=== PATIENT | male | born 1970 | race Caucasian/White ===

== ENCOUNTER 2023-01-31 16:11 | Inpatient (IN) ==
[2023-01-31] MEDS ORDERED: SODIUM CHLORIDE 0.9% 1000ML 1,000 ML IV STA (16:15)
[2023-01-31] MEDS ORDERED: ONDANSETRON INJ 2 MG/ML 2 ML VIAL IV STA (16:15)
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
[2023-01-31] MEDS: MoRPHine SULFATE 4 MG/ML 1 ML CARP\\VIAL IV PRN ×3 (16:29→19:51)
--- NOTE | 2023-01-31 17:21 | XRay Report ---
XR tibia fibula LT 2V CLINICAL HISTORY: crush injury. Left lower leg pain. COMPARISON STUDY: None. FINDINGS: There is an old, healed mid left fibular fracture. Soft tissue swelling within the distal l eft lower leg. There is a displaced transverse fracture within the distal shaft of the left tibia. Th is demonstrates up to 1.9 cm of medial displacement and 1 cm posterior displacement. The fracture sli ghtly comminuted. The ankle mortise appears intact. Slight cortical irregularity at the neck of the l eft fibula on the lateral view appears to represent an old, healed fracture. IMPRESSION: Displaced fracture within the distal shaft of the left tibia as described above. ACT 112: Negative or not required by law. Electronically signed by: Jerrell Leos M.D. 01/31/2023 5:19 PM
[2023-01-31 18:22] LABS: Basophils # (auto) 0.07 K/uL (0-0.2); Basophils % (auto) 0.6 %; Hematocrit (blood only) 39.9 % (42.0-52.0); Immature Granulocytes # (auto) 0.03 K/uL (0.01-0.20); Immature Granulocytes % (auto) 0.3 %; Lymphocytes # (auto) 1.03 K/uL (1.2-3.4); Lymphocytes % (auto) 8.7 %; Mean Corpuscular Hemoglobin 31.3 pg (25.0-34.0); Mean Corpuscular Hgb Conc 35.1 g/dL (32.0-36.0); Mean Corpuscular Volume 89.1 fL (80.0-100.0); Mean Platelet Volume 9.4 fL (9.4-12.4); Monocytes # (auto) 0.54 K/uL (0.11-0.59); Monocytes % (auto) 4.6 %; Neutrophils # (auto) 10.19 K/uL (1.40-6.50); Neutrophils % (auto) 85.8 %; Platelet Count 175 K/uL (130-400); RDW Coefficient of Variation 12.5 % (11.5-14.5); Red Blood Count 4.48 M/uL (4.70-6.10); White Blood Count 11.86 K/ul (4.8-10.8)
[2023-01-31 18:38] LABS: Albumin Level 4.3 gm/dl (3.4-5.0); Bilirubin,Total 0.4 mg/dl (0.2-1.0); Calcium 9.1 mg/dl (8.6-10.3); Creatinine Clr Calc Pharmacy 82.2 ml/min; Est GFR (African American) 87.4 ml/min; Est GFR (Non-African American) 75.4 ml/min; Globulin 2.2 gm/dl (2.5-4.0); Total Protein 6.5 gm/dl (6.0-8.3)
[2023-01-31 18:45] LABS: Troponin I High Sensitivity 4.2 pg/ml (0-20)
--- NOTE | 2023-01-31 18:55 | XRay Report ---
XR chest 1V portable HISTORY: Preop. Left tibial fracture. COMPARISON: None. FINDINGS: The lungs are clear. Cardiac silhouette is normal in size. No pleural effusions. No pneumot horax. IMPRESSION: No acute process. ACT 112: Negative or not required by law. Electronically signed by: Jerrell Leos M.D. 01/31/2023 6:53 PM
[2023-01-31 18:58] LABS: Prothrombin Time 10.8 Seconds (9.0-12.0)
[2023-01-31] MEDS ORDERED: oxyCODONE/ACETAMINOPHEN 5mg/325mg TAB PO STA (20:09)
[2023-01-31] MEDS: HYDROmorphone INJ 1 MG/ML SYRINGE IV PRN (22:51)
[2023-01-31] MEDS ORDERED: ONDANSETRON INJ 2 MG/ML 2 ML VIAL IV PRN (23:34)
[2023-01-31] MEDS ORDERED: oxyCODONE/ACETAMINOPHEN 5mg/325mg TAB PO PRN (23:34)
[2023-02-01] MEDS: HYDROmorphone INJ 1 MG/ML SYRINGE IV PRN ×3 (02:59→11:16)
[2023-02-01] MEDS ORDERED: ceFAZolin 2000MG 2,000 MG/15 ML SYR IV SCH (06:00)
[2023-02-01] MEDS: ACETAMINOPHEN 1,000 MG/100 ML VIAL IV PRN ×2 (06:22→20:13)
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
--- NOTE | 2023-02-01 07:36 | XRay Report ---
XR chest 2V PA/lateral CLINICAL HISTORY: Preoperative evaluation. COMPARISON STUDY: Chest radiograph January 31, 2023. FINDINGS: Lung volumes are normal. Lungs are clear. There is no pneumothorax or pleural effusion. Car diac size is normal. Mediastinal contours are normal. There is no evidence for pulmonary edema. Gaseo us distention of the stomach is partially imaged. IMPRESSION: No acute cardiopulmonary findings. ACT 112: Negative or not required by law. Electronically signed by: Marco iVgil M.D. 02/01/2023 7:35 AM
--- NOTE | 2023-02-01 07:44 | Anesthesiology Consultation ---
Date of Service February 01, 2023 Assessment & Plan Chart Review Chart Review: Acceptable Risk for Surgery and Patient NOT seen in Pre Admission Testing Consults Requested none ASA ASA2 Proposed Anesthesia Anesthesia Type: General History Surgery Operation Date: 02/01/23 09:00 Proposed Procedures p Left Intramedullary Nail Tibia - Richie Andrea Rodrigue, Height/Weight Height: 5 ft 8 in Weight: 86.4 kg Allergies Allergy/AdvReac Type Severity Reaction Status Date / Time No Known Allergies Allergy Unverified 01/31/23 16:37 Medications Home Medications Medication Instructions Recorded Confirmed Last Taken rosuvastatin 40 mg tablet 40 mg PO QAM 01/31/23 01/31/23 01/31/23 Active Medications Generic Name Dose Route Start Last Admin Trade Name Freq PRN Reason Stop Dose Admin Hydromorphone HCl 1 mg 01/31/23 20:08 02/01/23 07:18 Hydromorphone Inj 1 Mg/Ml Syringe IV 02/14/23 20:07 1 mg Q4 PRN Administration Pain Acetaminophen 1,000 mg in 100 mls @ 400 mls/hr 02/01/23 02:14 02/01/23 07:04 Ofirmev IV 02/04/23 02:13 Infused Q8H PRN Infusion Pain Past Medical History Medical History High cholesterol Hyperlipidemia Exercise / Class Metabolic Activity II 4-5 Yardwork/Stairs/Walk up hill Past Anesthesia History No Hx of Anesthesia Complications and No Family Hx of Anesthesia Complications History of PONV No Hx of PONV and No Hx of Motion Sickness Social History Smoking Status: Never smoker Hx Alcohol Use: Yes Alcohol type: beer and hard liquor alcohol intake frequency: a few times a week Hx Substance Use: No Physical Exam Vital Signs Last Vital Signs Temp 37.3 C 01/31/23 23:15 Pulse 81 01/31/23 23:15 Resp 16 01/31/23 23:15 BP 166/95 H 01/31/23 23:15 Pulse Ox 95 01/31/23 23:15 O2 Del Method Room Air 01/31/23 23:15 Testing Laboratory Results 01/31/23 18:02 01/31/23 18:02 PT 10.8 Seconds (9.0-12.0) 01/31/23 18:02 INR 1.0 (0.9-1.1) 01/31/23 18:02 Blood Type O Positive 01/31/23 18:33 Antibody Screen NEGATIVE 01/31/23 18:33 Electrocardiogram Date: 02/01/23 Findings: + NSR @ (@ 74;Abnormal QRS-T angle;consider primary T wave abnor mality) Chest X-Ray Date: 01/31/23 Findings: + NAD
[2023-02-01] MEDS: SODIUM CHLORIDE 0.9% 1000ML 1,000 ML IV SCH ×3 (07:50→20:35)
--- NOTE | 2023-02-01 08:33 | Hospitalist Progress Note ---
Date of Service February 01, 2023 Assessment & Plan (1) Closed left tibial fracture: Plan: Occurred during mowing accident while mowing his parent's law while up visiting from [place] for Graduation of his son Imaging w/ Displaced fracture within the distal shaft of the left tibia as described above Orthopedic primary, only takes crestor. No hx CAD/DE/Stroke, no personal hx DVT/PE Labs/CXR/EKG reviewed and medically stable. BP elevation but asymptomatic, suspected 2nd to pain from fracture. WBC elevation likely from stress/fracture, afebrile and no infectious symptoms reported Pain control/bowel regimen (passing gas, no BM, would be aggressive post- operatively) per primary service PT/OT following surgery DVT prophylaxis post-op per primary service, suspect ASA 81mg BID given no hx PE/DVT Dispo per primary service (2) Hyperlipidemia: Plan: Continue crestor Plan Hospitalist service will sign off at this time. Discussed w/ Dr Husain and can reach out for any issues post-operatively Thank you for allowing hospitalist service to participate in the care of Mr Schuler Admission and Anticipated Discharge Date Admission Date: January 31, 2023 Supervising Physician Co-Signing Physician Notes The patient was not seen by me. The chart was reviewed. Case discussed with ELOISE Lino. His only medical problem is hyperlipidemia for which he takes Crestor. He is medically stable for surgery. Agree with assessment and plan. Hospitalist service will sign off at this point Subjective eval this morning. in from [place] for his son's graduation and was mowing his parents grass when he sustained the injury. awaiting surgery. had decent amount of pain this morning but improvement w/ dilaudid reported. passing some gas but no bowel movement. no issues at baseline. discussed heavy bowel regimen to prevent constipation/etc while on pain meds when back from surgery. he would be interested in outpt therapy closer to home if able. discussed will sign off at this time but available for primary team to reach out w/ any questions/concerns. no history of DVT/PE. Physical Exam Physical Exam: General: WD/WN male resting in bed, NAD, just medicated for pain HEENT: head normocephalic, atraumatic, mmm, trachea midline Resp: CTA, no w/c/r, on room air 99% CV: RRR, no significant m/r/g, no pitting edema (LLE not able to be assessed due to splint/dressing) but sensation to toes intact GI: +BS, slight distension, NT to palpation MSK/Neuro: no focal deficit LLE in splint, compartments soft, sensation intact to light touch, pulses present Psych: AOx3, cooperative with exam Results & Data Results & Data Vital Signs (Past 12 Hours) Vital Signs Temp Pulse Pulse Resp BP BP Pulse Ox 02/01/23 08:12 37 C 74 20 171/97 H 99 01/31/23 23:15 37.3 C 81 16 166/95 H 95 01/31/23 22:00 76 23 169/102 H 99 01/31/23 21:30 77 18 174/89 H 98 01/31/23 21:01 76 14 185/102 H 99 01/31/23 20:51 78 O2 Del Method 02/01/23 08:12 Room Air 01/31/23 23:15 Room Air 01/31/23 22:00 Room Air 01/31/23 21:30 Room Air 01/31/23 21:01 Room Air 01/31/23 20:51 Laboratory Results 01/31/23 01/31/23 01/31/23 Range/Units 18:33 18:03 18:02 WBC (4.8-10.8) K/ul RBC (4.70-6.10) M/uL Hgb (14.0-18.0) g/dl Hct (42.0-52.0) % MCV (80.0-100.0) fL MCH (25.0-34.0) pg MCHC (32.0-36.0) g/dL RDW Std Deviation (36.4-46.3) fL RDW Coeff of Valeria (11.5-14.5) % Plt Count (130-400) K/uL MPV (9.4-12.4) fL Immature Gran % (Auto) % Neut % (Auto) % Lymph % (Auto) % [place] % (Auto) % Eos % (Auto) % Baso % (Auto) % Neut # (Auto) (1.40-6.50) K/uL Lymph # (Auto) (1.2-3.4) K/uL [place] # (Auto) (0.11-0.59) K/uL Eos # (Auto) (0-0.50) K/uL Baso # (Auto) (0-0.2) K/uL Immature Gran # (Auto) (0.01-0.20) K/uL PT (9.0-12.0) Seconds INR (0.9-1.1) Sodium 136 (136-145) mmol/L Potassium 4.0 (3.5-5.1) mmol/L Chloride 105 (98-107) mmol/L Carbon Dioxide 25 (21-32) mmol/L Anion Gap 6 (3-11) BUN 20 (6-23) mg/dl Creatinine 1.11 (0.6-1.4) mg/dl Est Cr Clr Drug Dosing 82.2 ml/min Est GFR ( Amer) 87.4 ml/min Est GFR (Non-Af Amer) 75.4 ml/min BUN/Creatinine Ratio 18.0 (10-20) Glucose 116 H (70-99(Fasting)) mg/dl Calcium 9.1 (8.6-10.3) mg/dl Total Bilirubin 0.4 (0.2-1.0) mg/dl AST 23 (13-39) U/L ALT 31 (7-52) U/L Alkaline Phosphatase 61 (34-104) U/L Troponin I High Sens 4.2 (0-20) pg/ml Total Protein 6.5 (6.0-8.3) gm/dl Albumin 4.3 (3.4-5.0) gm/dl Globulin 2.2 L (2.5-4.0) gm/dl Albumin/Globulin Ratio 2.0 (0.9-2) Lipase 24 (11-82) U/L SARS-CoV-2, RNA, NAAT NEGATIVE (NEGATIVE) Blood Type O Positive Antibody Screen NEGATIVE 01/31/23 01/31/23 Range/Units 18:02 18:02 WBC 11.86 H (4.8-10.8) K/ul RBC 4.48 L (4.70-6.10) M/uL Hgb 14.0 (14.0-18.0) g/dl Hct 39.9 L (42.0-52.0) % MCV 89.1 (80.0-100.0) fL MCH 31.3 (25.0-34.0) pg MCHC 35.1 (32.0-36.0) g/dL RDW Std Deviation 41.0 (36.4-46.3) fL RDW Coeff of Valeria 12.5 (11.5-14.5) % Plt Count 175 (130-400) K/uL MPV 9.4 (9.4-12.4) fL Immature Gran % (Auto) 0.3 % Neut % (Auto) 85.8 % Lymph % (Auto) 8.7 % [place] % (Auto) 4.6 % Eos % (Auto) 0.0 % Baso % (Auto) 0.6 % Neut # (Auto) 10.19 H (1.40-6.50) K/uL Lymph # (Auto) 1.03 L (1.2-3.4) K/uL [place] # (Auto) 0.54 (0.11-0.59) K/uL Eos # (Auto) 0.00 (0-0.50) K/uL Baso # (Auto) 0.07 (0-0.2) K/uL Immature Gran # (Auto) 0.03 (0.01-0.20) K/uL PT 10.8 (9.0-12.0) Seconds INR 1.0 (0.9-1.1) Sodium (136-145) mmol/L Potassium (3.5-5.1) mmol/L Chloride (98-107) mmol/L Carbon Dioxide (21-32) mmol/L Anion Gap (3-11) BUN (6-23) mg/dl Creatinine (0.6-1.4) mg/dl Est Cr Clr Drug Dosing ml/min Est GFR ( Amer) ml/min Est GFR (Non-Af Amer) ml/min BUN/Creatinine Ratio (10-20) Glucose (70-99(Fasting)) mg/dl Calcium (8.6-10.3) mg/dl Total Bilirubin (0.2-1.0) mg/dl AST (13-39) U/L ALT (7-52) U/L Alkaline Phosphatase (34-104) U/L Troponin I High Sens (0-20) pg/ml Total Protein (6.0-8.3) gm/dl Albumin (3.4-5.0) gm/dl Globulin (2.5-4.0) gm/dl Albumin/Globulin Ratio (0.9-2) Lipase (11-82) U/L SARS-CoV-2, RNA, NAAT (NEGATIVE) Blood Type Antibody Screen Diagnostic Findings Tibia/Fibula X-Ray 01/31/23 16:15 XR tibia fibula LT 2V CLINICAL HISTORY: crush injury. Left lower leg pain. COMPARISON STUDY: None. FINDINGS: There is an old, healed mid left fibular fracture. Soft tissue swelling within the distal left lower leg. There is a displaced transverse fracture within the distal shaft of the left tibia. This demonstrates up to 1.9 cm of medial displacement and 1 cm posterior displacement. The fracture slightly comminuted. The ankle mortise appears intact. Slight cortical irregularity at the neck of the left fibula on the lateral view appears to represent an old, healed fracture. IMPRESSION: Displaced fracture within the distal shaft of the left tibia as described above. ACT 112: Negative or not required by law. Electronically signed by: Jerrell Leos M.D. 01/31/2023 5:19 PM Chest X-Ray 01/31/23 17:49 XR chest 1V portable HISTORY: Preop. Left tibial fracture. COMPARISON: None. FINDINGS: The lungs are clear. Cardiac silhouette is normal in size. No pleural effusions. No pneumothorax. IMPRESSION: No acute process. ACT 112: Negative or not required by law. Electronically signed by: Jerrell Leos M.D. 01/31/2023 6:53 PM Chest X-Ray 01/31/23 23:34 XR chest 2V PA/lateral CLINICAL HISTORY: Preoperative evaluation. COMPARISON STUDY: Chest radiograph January 31, 2023. FINDINGS: Lung volumes are normal. Lungs are clear. There is no pneumothorax or pleural effusion. Cardiac size is normal. Mediastinal contours are normal. There is no evidence for pulmonary edema. Gaseous distention of the stomach is partially imaged. IMPRESSION: No acute cardiopulmonary findings. ACT 112: Negative or not required by law. Electronically signed by: Marco Vigil M.D. 02/01/2023 7:35 AM PG Care Time/CCT Total # of Minutes Spent Total Time Spent with Patient: Total time spent is greater than 50% in coordination of care (as documented) at patient's floor/unit and/or counseling patient: Coding Level of Care Code 91854 SUB INP/OBS CARE 10/22MIN Diagnoses Closed left tibial fracture S82.252A Encounter type: initial encounter Fracture alignment: displaced Fracture morphology: comminuted Tibia location: shaft Hyperlipidemia E78.5 (1) Closed left tibial fracture Encounter type: initial encounter Fracture alignment: displaced Fracture morphology: comminuted Tibia location: shaft Qualified Code(s): S82.252A - Displaced comminuted fracture of shaft of left tibia, initial encounter for closed fracture
--- NOTE | 2023-02-01 08:34 | History & Physical Report ---
Date of Service February 01, 2023 Assessment & Plan (1) Closed left tibial fracture: Plan: Nonweightbearing left lower extremity Splint Ice/elevate Pain control N.p.o. for or today Plan for left tibia intramedullary nail today Admission and Anticipated Discharge Date Admission Date: January 31, 2023 History of Present Illness Chief Complaint: Left tibia fracture Primary Care Provider: Ulysses Arevalo, DMD 52-year-old male presenting after injuring his left tibia. He reports that he was driving a lawnmower whenever he accidentally ran into a excavator bucket. The bucket hit directly at his midshaft left tibia. He noted immediate pain and deformity. He presented to the emergency department where radiographs were obtained demonstrating a displaced midshaft left tibia fracture. Denies any other injuries or trauma. Orthopedics was consulted. He was admitted to orthopedic service with plan for surgical intervention. Allergies Allergy/AdvReac Type Severity Reaction Status Date / Time No Known Allergies Allergy Unverified 01/31/23 16:37 Home Medications Medication Instructions Recorded Confirmed Type rosuvastatin 40 mg tablet 40 mg PO QAM 01/31/23 01/31/23 History Past Med/Surg History Medical History High cholesterol Hyperlipidemia Social History Smoking Status: Never smoker Hx Alcohol Use: Yes Alcohol type: beer and hard liquor Hx Substance Use: No Preferred Language: Luxembourgish Communication Ability: Effective Licensed Nurse Practitioner Required: No Beliefs That Will Affect Care: Christian Christian Beliefs: DENOMINATIONAL Current Living Situation: Spouse Feels Safe at Home: Yes Safety Concerns: Feels Safe At This Time Assistive Devices: Glasses Assistive Devices Comment: INVISILIGN FOR TEETH Physical Exam Constitutional: No acute distress, alert and oriented person place and time Respiratory: No audible wheezing Cardiovascular: Nontachycardic Musculoskeletal: Left lower extremity -In splint, compartments soft/compressible -Sensation intact to light touch s/spn/dpn/t/s - fires ehl/fhl, wiggles toes + dp, BCR Results & Data Results & Data Vital Signs (Past 12 Hours) Vital Signs Temp Pulse Pulse Resp BP BP Pulse Ox 02/01/23 08:12 37 C 74 20 171/97 H 99 01/31/23 23:15 37.3 C 81 16 166/95 H 95 01/31/23 22:00 76 23 169/102 H 99 01/31/23 21:30 77 18 174/89 H 98 01/31/23 21:01 76 14 185/102 H 99 01/31/23 20:51 78 O2 Del Method 02/01/23 08:12 Room Air 01/31/23 23:15 Room Air 01/31/23 22:00 Room Air 01/31/23 21:30 Room Air 01/31/23 21:01 Room Air 01/31/23 20:51 Diagnostic Findings Radiographs of the left tibia demonstrate a displaced midshaft left tibia fracture Code Status & VTE Plan VTE Prophylaxis Plan VTE Prophylaxis will be ordered: Yes (1) Closed left tibial fracture Encounter type: initial encounter Fracture alignment: displaced Fracture morphology: comminuted Tibia location: shaft Qualified Code(s): S82.252A - Displaced comminuted fracture of shaft of left tibia, initial encounter for closed fracture
[2023-02-01 09:37] LABS: Hematocrit (blood only) 40.9 % (42.0-52.0); Hemoglobin 14.4 g/dl (14.0-18.0); Mean Corpuscular Hemoglobin 31.4 pg (25.0-34.0); Mean Corpuscular Hgb Conc 35.2 g/dL (32.0-36.0); Mean Corpuscular Volume 89.1 fL (80.0-100.0); Mean Platelet Volume 9.1 fL (9.4-12.4); Platelet Count 165 K/uL (130-400); RDW Coefficient of Variation 12.7 % (11.5-14.5); RDW Standard Deviation 41.7 fL (36.4-46.3); Red Blood Count 4.59 M/uL (4.70-6.10)
[2023-02-01 09:54] LABS: Calcium 8.7 mg/dl (8.6-10.3); Creatinine Clr Calc Pharmacy 91.4 ml/min; Est GFR (African American) 99.2 ml/min; Est GFR (Non-African American) 85.5 ml/min; Magnesium 1.8 mg/dl (1.7-2.4); Potassium 3.8 mmol/L (3.5-5.1)
--- NOTE | 2023-02-01 10:29 | Electrocardiogram Report ---
Test Reason : Blood Pressure : / mmHG Vent. Rate : 080 BPM Atrial Rate : 080 BPM P-R Int : 148 ms QRS Dur : 084 ms QT Int : 358 ms P-R-T Axes : 046 074 026 degrees QTc Int : 412 ms Normal sinus rhythm Normal ECG No previous ECGs available Confirmed by Lan Kent ([id number]) on 02/01/2023 10:28:40 AM Referred By: REFERRED SELF Confirmed By:Lan Kent
--- NOTE | 2023-02-01 10:34 | Electrocardiogram Report ---
Test Reason : Blood Pressure : / mmHG Vent. Rate : 074 BPM Atrial Rate : 074 BPM P-R Int : 158 ms QRS Dur : 082 ms QT Int : 380 ms P-R-T Axes : 052 081 -05 degrees QTc Int : 421 ms Normal sinus rhythm Nonspecific ST abnormality Abnormal ECG When compared with ECG of 31-JAN-2023 18:08, (unconfirmed) Nonspecific ST abnormality is present in the inferior leads Confirmed by Lan Kent ([id number]) on 02/01/2023 10:33:52 AM Referred By: REFERRED SELF Confirmed By:Lan Kent
[2023-02-01] MEDS ORDERED: DEXAMETHASONE SOD INJ 4 MG/ML VIAL ONE (11:49)
[2023-02-01] MEDS ORDERED: PROPOFOL IV EMULSION 10 MG/ML 20 ML VIAL IV ONE ×2 (11:49→13:44)
[2023-02-01] MEDS ORDERED: ONDANSETRON INJ 2 MG/ML 2 ML VIAL ONE (11:49)
[2023-02-01] MEDS ORDERED: LIDOCAINE 2% 2 ML VIAL/AMP(20MG/ML) INFIL ONE (11:49)
[2023-02-01] MEDS ORDERED: fentaNYL citrate PF 100 MCG/2 ML VIAL ONE (11:50)
[2023-02-01] MEDS ORDERED: MIDAZOLAM HCL 1 MG/ML 2ML VIAL ONE (11:50)
[2023-02-01] MEDS ORDERED: HYDROmorphone INJ 1 MG/ML SYRINGE IV PRN (11:52)
[2023-02-01] MEDS ORDERED: ATROPINE SULFATE 0.1 MG/ML 10ML SYR IV PRN (11:52)
[2023-02-01] MEDS ORDERED: DEXAMETHASONE SOD INJ 4 MG/ML VIAL IV PRN (11:52)
[2023-02-01] MEDS ORDERED: PROMETHAZINE HCL 12.5 MG in SODIUM CHLORIDE 0.9% 50 ML IV PRN (11:52)
[2023-02-01] MEDS ORDERED: ePHEDrine sulfate 50 MG/ML AMP IV PRN (11:52)
[2023-02-01] MEDS ORDERED: NALOXONE HCL 0.4 MG/1 ML VIAL/CARP IV PRN ×2 (11:52→14:17)
[2023-02-01] MEDS ORDERED: FLUMAZENIL 0.1 MG/1 ML 10 ML VIAL IV PRN (11:52)
[2023-02-01] MEDS ORDERED: LABETALOL HCL IV 5 MG/ML 20ML IV PRN (11:52)
[2023-02-01] MEDS ORDERED: HYDROmorphone INJ 2 MG/ML SYR/VIAL ONE (12:35)
[2023-02-01] MEDS ORDERED: ROCURONIUM BROMIDE 10 MG/ML 5 ML VIAL IV ONE (13:36)
[2023-02-01] MEDS ORDERED: NEOSTIGMINE METHYLSULFATE 1 MG/ML 10ML VIAL ONE (13:42)
[2023-02-01] MEDS ORDERED: GLYCOPYRROLATE 0.2 MG/ML VIAL ONE (13:43)
--- NOTE | 2023-02-01 13:56 | Fluoroscopy Report ---
FL tibia/fibula LT 2V CLINICAL HISTORY: LT TIB IM NAIL COMPARISON STUDY: Left tibia and fibula radiographs January 31, 2023. FLUOROSCOPY TIME: 45 seconds. Adonay, r: 1.7284 mGy FLUOROSCOPIC IMAGES: 7 FINDINGS: Fluoroscopy was provided during open reduction and internal fixation of the left tibial fra cture with intramedullary jin with proximal and distal screws. Fracture alignment has markedly improv ed and appears anatomic. Old midshaft fracture of the left fibula is present. IMPRESSION: Fluoroscopy provided during internal fixation of the left tibial fracture. ACT 112: Negative or not required by law. Electronically signed by: Marco Vigil M.D. 02/01/2023 1:54 PM
--- NOTE | 2023-02-01 14:09 | Post Operative Brief Note ---
Immediate Post Op Note v1 Date of Surgery February 01, 2023 Pre & Post Diagnosis Operation Date: 02/01/23 09:00 Pre-Op Diagnosis: Left Tibia Fracture Post-Op Diagnosis: Left Tibia Fracture I identified the patient and participated in the time-out.: Yes Procedure Operation Date: 02/01/23 09:00 Actual Procedures p Left Intramedullary Nail Tibia(Left) - Richie Husain DO Surgeon Richie Husain DO Shell Maker Lockstitch none Estimated Blood Loss 30 Findings Consistent with Post-Op Diagnosis See dictation Complications None
--- NOTE | 2023-02-01 14:15 | Operative Report ---
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 He reports that he was driving a lawnmower whenever it ran into the front of a excavator bucket. Immediately afterwards he noted pain and deformity in his left lower extremity. In the emergency department radiographs were obtained demonstrating a displaced left midshaft tibia fracture. Patient was admitted to orthopedics for planned surgical intervention. I met with the patient preoperatively. We had a lengthy discussion regarding risk benefits potential complications of left tibia intramedullary nail. These include but are not limited to: Infection, neurovascular injury, DVT, nonunion, malunion, anterior knee pain, and need for future surgery. After reviewing these he elected to proceed with surgical intervention and written consent was obtained. Description of Procedure Implants: Synthes tibial nail advanced 9 mm x 330 mm, 5 mm x 40 mm locking screw X2, 5 mm x 32 mm locking screw, 5 mm x 34 mm locking screw Patient was properly identified in the preoperative holding area and the left lower extremity was marked. He received antibiotics per protocol. He was taken back to the operative suite where he received general anesthesia. He was then transferred over to the OR table. Nonsterile thigh tourniquet was placed. He was then prepped and draped in the standard orthopedic fashion and timeout was then performed. A 3 cm incision just superior to the pole of the patella was then made through the skin. Electrocautery was used to dissect through the subcutaneous tissue down to the quadriceps tendon which was then split in line with the incision. Trocar was then introduced in through the incision and advanced through the patellofemoral joint to the tibial articular margin. Using the assistance of fluoroscopy starting point was established just medial to the lateral tibial spine and below the articular margin using a threaded guidewire. Position was confirmed on AP and lateral fluoroscopy. Opening reamer was then used to open the canal proximally. Guidewire was then removed and a threaded ball-tipped guidewire was then inserted into the proximal aspect of the canal and advanced distally. Fracture reduction was attempted using traction and rotation. However, due to the interposed small butterfly fragment I was unable to achieve a satisfactory reduction. Therefore a small incision was made just medially over the fracture site. Curette was used to clear out any residual fracture hematoma. A pointed tenaculum was then used to successfully reduce the fracture to a near anatomic position. Ball-tipped guidewire was then advanced from the proximal segment to the distal segment. Length of the ball-tipped guidewire was measured and a 330 mm implant was selected. The canal was then reamed starting with a 8.5 mm reamer up to a 10.5 mm reamer to accommodate a 9 mm intramedullary nail. Intramedullary nail was then inserted. Attention was first turned to the distal medial to lateral interlocks. Incisions were made for both interlocking screws using the assistance of C-arm fluoroscopy and drill was used to drill bicortically. 40 mm interlock was placed in the most distal hole followed by a 32 mm screw for the more proximal distal hole. Both were noted to have excellent purchase. The nail was then back slapped proximally to compress at the fracture site. Proximal outrigger was then attached. Incisions were then made for proximal medial to lateral interlocks. Incision was made for static interlock as well as dynamic interlock. Drill was used to drill bicortically. For the static interlock a 34 mm screw was inserted followed by a 38 mm screw for the dynamic interlock. Proximal outrigger was then removed as well as the nail promotion writer. Final radiographs were obtained demonstrating satis factory position of the implant and reduction of the fracture. Wounds were copiously irrigated using normal saline solution. Quadriceps tendon was closed in a edle-gy-kadr fashion using 0 Vicryl suture. Subcutaneous tissues were closed using 2-0 Vicryl and peace were used for the skin. Sterile dressings of Xeroform 4 x 4 gauze and Tegaderms were then applied. Patient was placed in a bulky Oconnor cotton posterior slab splint. Patient tolerated the procedure well and was taken recovery room in hemodynamically stable condition I attest to the content of the Intraoperative Record and any orders documented therein. Any exceptions are noted below.
[2023-02-01] MEDS ORDERED: METOCLOPRAMIDE HCL INJ 5 MG/ML 2 ML VIAL IV PRN (14:17)
[2023-02-01] MEDS ORDERED: ONDANSETRON INJ 2 MG/ML 2 ML VIAL IV PRN (14:17)
[2023-02-01] MEDS ORDERED: bisacodyL 10 MG SUPP PR PRN (14:17)
[2023-02-01] MEDS ORDERED: MAGNESIUM HYDROXIDE SUSP 30 ML UDC PO PRN (14:17)
[2023-02-01] MEDS: fentaNYL citrate PF 100 MCG/2 ML VIAL IV PRN ×4 (14:24→14:39)
--- NOTE | 2023-02-01 14:55 | Anesthesiology Progress Note ---
Date of Service February 01, 2023 Anesthesia Post Procedure Vital Signs Vital Signs: Temp Pulse Pulse Pulse Resp BP BP 02/01/23 14:45 36.7 C 78 16 153/94 H 02/01/23 14:35 72 12 178/108 H 02/01/23 14:25 79 18 161/96 H 02/01/23 14:15 36.5 C 68 14 149/91 H 02/01/23 08:12 37 C 74 20 171/97 H 01/31/23 23:15 37.3 C 81 16 166/95 H 01/31/23 22:00 76 23 169/102 H 01/31/23 21:30 77 18 174/89 H 01/31/23 21:01 76 14 185/102 H 01/31/23 20:30 75 24 165/111 H 01/31/23 20:51 78 01/31/23 20:00 83 15 142/97 H 01/31/23 19:30 77 16 159/106 H 01/31/23 19:00 77 17 162/93 H 01/31/23 18:30 85 14 166/101 H 01/31/23 18:00 86 20 171/91 H 01/31/23 17:30 77 18 151/87 H 01/31/23 16:32 72 01/31/23 16:15 36.8 C 74 22 150/92 H Pulse Ox O2 Del Method O2 Flow Rate 02/01/23 14:45 100 Nasal Cannula 2 02/01/23 14:35 99 Oxymask 4 02/01/23 14:25 100 Oxymask 6 02/01/23 14:15 100 Oxymask 6 02/01/23 08:12 99 Room Air 01/31/23 23:15 95 Room Air 01/31/23 22:00 99 Room Air 01/31/23 21:30 98 Room Air 01/31/23 21:01 99 Room Air 01/31/23 20:30 99 Room Air 01/31/23 20:51 01/31/23 20:00 93 Room Air 01/31/23 19:30 98 Room Air 01/31/23 19:00 99 Room Air 01/31/23 18:30 97 Room Air 01/31/23 18:00 97 Room Air 01/31/23 17:30 99 Room Air 01/31/23 16:32 01/31/23 16:15 98 Room Air Pain Intensity Left Lower Leg: Pain Intensity: 5 Transfer of Care Handoff Completed per policy Notes Mental Status: alert / awake / arousable Patient Amnestic to Procedure: Yes Nausea / Vomiting: adequately controlled Pain: adequately controlled Airway Patency, RR, SpO2: stable & adequate BP & HR: stable & adequate Hydration State: stable & adequate Anesthetic Complications: no major complications apparent
[2023-02-01] MEDS: DOCUSATE SODIUM 100 MG CAP PO SCH (20:14)
[2023-02-01] MEDS: APIXABAN 2.5 MG TAB PO SCH (20:14)
[2023-02-01] MEDS: ceFAZolin 2000MG 2,000 MG/15 ML SYR IV SCH (20:35)
[2023-02-01] MEDS ORDERED: SENNA 8.6 MG TAB PO SCH (21:00)
[2023-02-02] MEDS: SODIUM CHLORIDE 0.9% 1000ML 1,000 ML IV SCH ×2 (04:49→05:50)
[2023-02-02] MEDS: ceFAZolin 2000MG 2,000 MG/15 ML SYR IV SCH (05:32)
[2023-02-02] MEDS: ACETAMINOPHEN 1,000 MG/100 ML VIAL IV PRN (05:40)
--- NOTE | 2023-02-02 07:29 | Orthopedic Progress Note ---
Date of Service February 02, 2023 Assessment & Plan (1) Closed left tibial fracture: Plan: POD #1 s/p Left Intramedullary Nail Tibia NWB left lower extremity Pain control Ice/elevate dvt proph with ana laura/scd/eliquis d/c home today, he will likely follow up with his ortho provider in [place], if not will call to schedule appt with Dr Husain in 12-14 days Admission and Anticipated Discharge Date Admission Date: January 31, 2023 Subjective POD #1 s/p Left Intramedullary Nail Tibia Review of Systems Constitutional: no fever and no chills Respiratory: no cough and no dyspnea Cardiovascular: no chest pain, no dyspnea and no orthopnea Gastrointestinal: no abdominal pain, no nausea and no vomiting Physical Exam Physical Exam: Vital Signs Temp 37.7 C H 02/02/23 07:16 Pulse 81 02/02/23 07:16 Resp 16 02/02/23 07:16 BP 132/82 02/02/23 07:16 Pulse Ox 97 02/02/23 07:16 O2 Del Method Room Air 02/02/23 07:16 O2 Flow Rate 2 02/01/23 15:45 Intake & Output 02/01/23 02/02/23 02/02/23 18:59 06:59 18:59 Intake Total 1300 / 3426.667 2126.667 / 3426.66 7 Output Total 30 / 1730 1700 / 1730 Balance 1270 / 1696.667 426.667 / 1696.667 Weight 86.4 kg Intake: IV 100 / 2226.667 2126.667 / 2226.66 7 Acetaminophen 1,000 mg In 100 100 / 300 200 / 300 ml @ 400 mls/h r IV Q8H PRN Rx#: [id number] Sodium Chlorid e 0.9% 1000ML 1, 1926.667 / 1926.66 7 000 ml @ 100 m ls/hr IV .Q10H RADHA Rx#:[id number] IV Perioperative 1200 / 1200 Output: Urine 1700 / 1700 Estimated Blood Loss 30 / 30 Other: # Unmeasured Voi ds 1 Musculoskeletal: left leg: splint intact, NVDI. CR less than 2 sec, able to wiggle toes, sensation intact to light touch. Results & Data Vital Signs (Past 12 Hours) Vital Signs Temp Pulse Resp BP Pulse Ox O2 Del Method 02/02/23 07:16 37.7 C H 81 16 132/82 97 Room Air 02/02/23 04:11 37.7 C H 81 18 144/84 H 97 Room Air 02/01/23 23:10 37.8 C H 79 18 139/77 96 Room Air (1) Closed left tibial fracture Encounter type: initial encounter Fracture alignment: displaced Fracture morphology: comminuted Tibia location: shaft Qualified Code(s): S82.252A - Displaced comminuted fracture of shaft of left tibia, initial encounter for closed fracture
[2023-02-02] MEDS: DOCUSATE SODIUM 100 MG CAP PO SCH (08:05)
[2023-02-02] MEDS: APIXABAN 2.5 MG TAB PO SCH (08:05)
[2023-02-02] MEDS ORDERED: MULTIVITAMIN TAB PO SCH (09:00)
[2023-02-02] MEDS ORDERED: ROSUVASTATIN CALCIUM 20 MG TAB PO SCH (09:00)
--- NOTE | 2023-02-03 12:07 | Discharge Summary ---
Date of Service date of discharge: February 02, 2023 date of admission: 01-31-23 Admission HPI Per Admitting Provider 52-year-old male presenting after injuring his left tibia. He reports that he was driving a lawnmower whenever he accidentally ran into a excavator bucket. The bucket hit directly at his midshaft left tibia. He noted immediate pain and deformity. He presented to the emergency department where radiographs were obtained demonstrating a displaced midshaft left tibia fracture. Denies any other injuries or trauma. Orthopedics was consulted. He was admitted to orthopedic service with plan for surgical intervention. Principal Diagnosis left tibia fracture Discharge Exam Constitutional WD/WN, vitals as above Musculoskeletal left leg: splint intact, NVDI. CR less than 2 sec, able to wiggle toes, sensation intact to light touch. Discharge Data Allergies Allergy/AdvReac Type Severity Reaction Status Date / Time No Known Allergies Allergy Unverified 01/31/23 16:37 Consultations 01/31/23 17:49 Consult Orthopedic Surgery Stat 01/31/23 18:02 ED Decision to Admit Stat 01/31/23 18:37 Consult Hospitalist Stat Procedures Performed Operation Date: 02/01/23 09:00 Actual Procedures p Left Intramedullary Nail Tibia(Left) - Richie Beavers DO Ordered Studies 02/01/23 [place] tibia/fibula LT 2V Routine Hospital Course (1) Closed left tibial fracture: POD #1 s/p Left Intramedullary Nail Tibia NWB left lower extremity Pain control Ice/elevate dvt proph with ana laura/scd/eliquis d/c home today, he will likely follow up with his ortho provider in [place], if not will call to schedule appt with Dr Beavers in 12-14 days Total Time Total Time Spent Total Time Spent (In Minutes): 20 Discharge Plan Discharge Items Patient Disposition: Home - Self-Care Reason For Visit: TIBIA FRACTURE Discharge Diagnosis: Left Intramedullary Nail Tibia Activity: Per Instructions section Weightbearing: Left non-weightbearing Non-emergency contact: Surgeon Call non-emergency contact if: you have any medication questions, your temperature is above 101, your wound has increased redness, your wound has increased drainage and your wound pain has increased Follow-up/Referrals: Richie Beavers DO [Surgeon] - (12-14 days post op PATIENT IS FROM [place], [place]. HE WILL SEE DR SALVADOR (ORTHOPEDIC SURGEON) 12- 14 DAYS POST OP. HIS PCP IS [facility] IN [place], [place]-HE WILL FOLLOW UP WITH THEM IN 7-10 AFTER DISCHARGE.) Diet: Regular Addtl Attending Provider Instructions: ACTIVITY RECOMMENDATIONS: * Remain non-weightbearing on your left leg. SPECIAL CARE INSTRUCTIONS: * Some drainage onto the dressing is normal and is no cause for alarm. * Some swelling is natural especially after walking. When resting, keep your foot elevated above the level of your heart. * Call the doctor's office at if you notice increased drainage, fever over 101 degrees F. or severe constant pain. BANDAGE: * Leave bandage/cast in place unless otherwise directed. * Keep bandage/cast dry at all times. FOLLOW UP VISIT: If appointment is not already scheduled: Please call [facility] to make a follow-up appointment with Dr Beavers 12-14 days after your surgery at . Pending Studies at Discharge: No Stand-Alone Forms: My [facility], Smoking Cessation Medications and DC Order Prescriptions: New Eliquis 2.5 mg Tablet 2.5 mg PO BID 28 Days Qty: 56 0RF oxycodone-acetaminophen [Percocet] 5-325 mg Tablet 1 - 2 tab PO Q6H PRN (Reason: pain) Qty: 18 0RF Rx Instructions: initial therapy, supervising dr el beavers, max 6 tabs in 24 hours docusate sodium 100 mg Capsule 100 mg PO BID 10 Days Qty: 20 0RF Continued rosuvastatin 40 mg tablet 40 mg PO QAM Discharge Orders: Discharge Order (Routine); Ordered 02/02/23 Ordered By: Vadim Veliz/Other Patient Handouts: Surg Dc Admission Data Admit Date/Time: 01/31/23 18:33 Attending Provider: Richie Beavers Admit Provider: Richie Beavers Primary Care Provider: Ulysses Arevalo Other Providers: Samuel Devi ; Balaji Harris ; Richie Beavers Other Interventions: Discharge Summary Assessment (RN) Last Done: 02/02/23 10:36
== END 2023-02-02 13:43 | disposition home or self-care (01) | DRG 494 ==
LOC: ED 16:11 → 3W 18:33
DX: Y99.8 Other external cause status; W23.2XXA Caught, crushed, jammed or pinched between a moving and stationary object, initial encounter; Z79.899 Other long term (current) drug therapy; Y93.H9 Activity, other involving exterior property and land maintenance, building and construction; E78.5 Hyperlipidemia, unspecified; S82.222A Displaced transverse fracture of shaft of left tibia, initial encounter for closed fracture